=== PATIENT | female | born 1980 | race Two or more races ===

== ENCOUNTER 2021-09-24 11:14 | Emergency (ER) | payer SELFPAY ==
[~2021-09-24] VITALS: Ht 160 cm; Wt 72.0 kg
--- NOTE | 2021-09-24 11:33 | ED.ADGEN ---
Past Medical History Past Surgical History: Appendectomy General Adult EDM: Chief Complaint: ABDOMINAL PAIN HPI: HPI: Patient is a 41 year old female coming in for 1 week of intermittent right upper quadrant pain. Patient states that pain is worse after eating. Has some nausea but no vomiting. Denies any hematuria. Has a pain reach out to the side but not to the back. Has history of appendectomy. Review of Systems: Review of Systems: All other systems within normal limits except for as noted in the HPI Current Medications: Current Medications Medications (Trade) Dose Ordered Sig/Yas Start Time Stop Time Status Last Admin Dose Admin Info (CONTRAST GIVEN -- Rx MONITORING) 1 each PRN DAILY PRN 09/24/21 12:45 09/26/21 12:44 Iohexol (Omnipaque 300 Mg/ml) 75 ml 1X ONCE 09/24/21 12:45 09/24/21 12:46 DC 09/24/21 13:03 75 ML Multi-Ingredient Mouthwash/Gargle (Gi Cocktail) 20 ml 1X ONCE 09/24/21 13:30 09/24/21 13:31 DC 09/24/21 13:56 20 ML Allergies: Allergies: Allergies Coded Allergies Type Severity Reaction Last Updated Verified No Known Drug Allergies 09/24/21 No Physical Exam: PE: Constitutional: Well developed, well nourished, no acute distress, non-toxic appearance. [] HENT: Normocephalic, atraumatic, bilateral external ears normal, nose normal. [] Eyes: PERRLA, conjunctiva normal, no discharge. [] Neck: No rigidity, supple, no stridor. [] Cardiovascular: Regular rate and rhythm, brisk cap refill [] Lungs & Thorax: Non labored symmetric respirations, no tachypnea or respiratory distress [] Abdomen: Soft, nondistended, positive Anna sign. Skin: Warm, dry, no erythema, no rash. [] Back: Unremarkable, no CVA tenderness Extremities: No deformities, range of motion grossly intact, no lower extremity edema [] Neurologic: Alert and oriented X 3, no focal deficits noted. [] Psychologic: Affect normal, judgement normal, mood normal. [] Current Patient Data: Labs: Laboratory Tests Test 09/24/21 11:35 09/24/21 11:39 09/24/21 11:45 Urine Collection Type Unknown Urine Color Yellow Urine Clarity Clear Urine pH 6.0 (<5.0-8.0) Urine Specific [place] 1.025 (1.000-1.030) Urine Protein Negative mg/dL (NEG-TRACE) Urine Glucose (UA) Negative mg/dL (NEG) Urine Ketones (Stick) Negative mg/dL (NEG) Urine Blood Negative (NEG) Urine Nitrite Negative (NEG) Urine Bilirubin Negative (NEG) Urine Urobilinogen Dipstick 1.0 mg/dL (0.2 mg/dL) Urine Leukocyte Esterase Small (NEG) Urine RBC 0 /HPF (0-2) Urine WBC 1-4 /HPF (0-4) Urine Squamous Epithelial Cells Few /LPF Urine Bacteria 0 /HPF (0-FEW) Urine Mucus Mod /LPF POC Urine HCG, Qualitative Hcg negative (Negative) White Blood Count 6.8 x10^3/uL (4.0-11.0) Red Blood Count 3.97 x10^6/uL (3.50-5.40) Hemoglobin 12.5 g/dL (12.0-15.5) Hematocrit 36.9 % (36.0-47.0) Mean Corpuscular Volume 93 fL (79-100) Mean Corpuscular Hemoglobin 32 pg (25-35) Mean Corpuscular Hemoglobin Concent 34 g/dL (31-37) Red Cell Distribution Width 13.6 % (11.5-14.5) Platelet Count 329 x10^3/uL (140-400) Neutrophils (%) (Auto) 77 % (31-73) H Lymphocytes (%) (Auto) 13 % (24-48) L Monocytes (%) (Auto) 7 % (0-9) Eosinophils (%) (Auto) 2 % (0-3) Basophils (%) (Auto) 0 % (0-3) Neutrophils # (Auto) 5.3 x10^3/uL (1.8-7.7) Lymphocytes # (Auto) 0.9 x10^3/uL (1.0-4.8) L Monocytes # (Auto) 0.5 x10^3/uL (0.0-1.1) Eosinophils # (Auto) 0.1 x10^3/uL (0.0-0.7) Basophils # (Auto) 0.0 x10^3/uL (0.0-0.2) Sodium Level 143 mmol/L (136-145) Potassium Level 3.9 mmol/L (3.5-5.1) Chloride Level 106 mmol/L (98-107) Carbon Dioxide Level 27 mmol/L (21-32) Anion Gap 10 (6-14) Blood Urea Nitrogen 9 mg/dL (7-20) Creatinine 0.6 mg/dL (0.6-1.0) Estimated GFR (Cockcroft-Gault) 110.2 BUN/Creatinine Ratio 15 (6-20) Glucose Level 83 mg/dL (70-99) Calcium Level 8.0 mg/dL (8.5-10.1) L Total Bilirubin 0.3 mg/dL (0.2-1.0) Aspartate Amino Transferase (AST) 6 U/L (15-37) L Alanine Aminotransferase (ALT) 15 U/L (14-59) Alkaline Phosphatase 84 U/L (46-116) C-Reactive Protein, Quantitative 213.7 mg/L (0-3.3) H Total Protein 7.6 g/dL (6.4-8.2) Albumin 2.8 g/dL (3.4-5.0) L Albumin/Globulin Ratio 0.6 (1.0-1.7) L Lipase 92 U/L (73-393) Laboratory Tests 09/24/21 11:45 Laboratory Tests 09/24/21 11:45 Microbiology 09/24/21 Wet Prep - Final, Complete Vital Signs: Vital Signs Date Time Temp Pulse Resp B/P (MAP) Pulse Ox O2 Delivery O2 Flow Rate FiO2 09/24/21 14:21 86 118/75 (89) 98 Room Air 09/24/21 11:18 98.3 18 98.3 EKG: EKG: [] Heart Score: C/O Chest Pain: No Risk Factors: Risk Factors: DM, Current or recent (<one month) smoker, HTN, HLP, family history of CAD, obesity. Risk Scores: Score 0 - 3: 2.5% MACE over next 6 weeks - Discharge Home Score 4 - 6: 20.3% MACE over next 6 weeks - Admit for Clinical Observation Score 7 - 10: 72.7% MACE over next 6 weeks - Early Invasive Strategies Radiology/Procedures: Radiology/Procedures: RUN DATE: 09/24/21 [facility] *LIVE* PAGE 1 RUN TIME: 1528 Specimen Inquiry PATIENT: TAMIKO RUGGIERO ACCT: [id number] LOC: [facility] U: [id number] AGE/SX: 41/F ROOM: RE09/24/[address]: JANE WLALACE MD : 1980 BED: DIS: STATUS: REG ER TLOC: SPEC #: [id number] MIGUEL: 09/24/21 STATUS: COMP REQ #: [id number] RECD: 09/24/[address]: JANE WALLACE MD SOURCE: VAGINAL ENTR: 09/24/21-1418 [facility] DR: MARTINEZ ARREAGA SPDESC: ORDERED: WET PREP COMMENTS: Has specimen been collected/obtained? Y Procedure Result WET PREP Final YEAST NONE SEEN TRICHOMONAS NONE SEEN CLUE CELLS CLUE CELLS PRESENT ALTERED JARVIS ALTERED JARVIS PRESENT SUGGESTIVE OF BACTERIAL VAGINOSIS WBCS NONE PRESENT RBCS NO RBCS SEEN SQUAMOUS EPS [facility] [address] [place] [address] IMAGING REPORT Signed PATIENT: TAMIKO RUGGIEROACCOUNT: [id number] : 1980 LOCATION: ER AGE: 41 SEX: F EXAM STATUS: REG ER ORD. PHYSICIAN: JANE WALLACE MD REASON: PID, ovarian cysts PROCEDURE: PELVIS COMPLETE INDICATION: Reason: PID, ovarian cysts / Spl. Instructions: / History: COMPARISON: CT from same day TECHNIQUE: Grayscale and color ultrasound images uterus and adnexa. FINDINGS: Uterus: 90 x 53 x 51 mm. 10 mm endometrial stripe Right Ovary: 44 x 36 x 30 mm. Left Ovary: 65 x 53 x 47 mm. Vascular flow identified to bilateral ovaries. Heterogenous hypoechoic lesion right ovary measuring 28 mm and left ovary measuring 43 mm. IMPRESSION: * Heterogenous hypoechoic lesions in the bilateral ovaries. Could be from causes such as hemorrhagic cyst or endometrioma but follow-up could be obtained to ensure that this does not increase to exclude higher grade neoplastic cause. Given the patient's stranding within the pelvis on CT alternative infectious causes such as pelvic inflammatory changes with tubo-ovarian abscess is also a differential. Electronically signed by: Kellie Martin MD (09/24/2021 3:34 PM) [id number] DICTATED and SIGNED BY: KELLIE MARTIN MD DATE: 09/24/21 [id number] [facility] [address] [place] [address] IMAGING REPORT Signed PATIENT: TAMIKO RUGGIEROACCOUNT: [id number] : 1980 LOCATION: ER AGE: 41 SEX: F EXAM STATUS: REG ER ORD. PHYSICIAN: JANE WALLACE MD REASON: upper abd pain PROCEDURE: CT ABD PELV W/ IV CONTRST ONLY EXAM: Abdomen and pelvis CT with intravenous contrast. HISTORY: Pain. TECHNIQUE: Computed tomographic images of the abdomen and pelvis were obtained following the administration of intravenous contrast. Multiplanar reformatting was performed. *One or more of the following individualized dose reduction techniques were utilized for this examination: 1. Automated exposure control. 2. Adjustment of the mA and/or kV according to patient size. 3. Use of iterative reconstruction technique. COMPARISON: None. FINDINGS: Evaluation of the lower thorax demonstrates bilateral lower lobe pneumonia. There is also right middle lobe and lingular atelectasis or infiltrate. There is no pleural effusion. The heart is normal in size. There is a 4 mm hypodense lesion within the right hepatic lobe, too small to characterize. The gallbladder is contracted. The stomach is distended due to recently ingested bolus. The pancreas, spleen and adrenal glands are unremarkable. The appendix is not seen. There are no secondary findings to suggest appendici tis. There is segmental wall thickening involving the colon likely due to relative under distention. There are also nonspecific loops of small bowel with wall thickening within the left abdomen. There is a tiny focus of gas within the bladder, likely related to recent catheterization. There aren't left greater than right ovarian cysts, measuring 4.5 cm and 2.7 cm. There is inflammatory stranding within the inferior peritoneal cavity and throughout the adnexal regions. The aorta is normal in caroline iber. There are nonspecific lymph nodes. IMPRESSION: 1. Left greater than right ovarian cyst measuring 4.5 cm and 2.7 cm. There is inflammatory stranding primarily within the inferior peritoneum and pelvis. Correlate for peritonitis or pelvic inflammatory disease. 2. Nonspecific wall thickening involving loops of small and large bowel, likely due to relative under distention and peristalsis. There is no bowel obstruction and there are no secondary findings to suggest appendicitis. 3. Contracted gallbladder and distended stomach due to the postprandial status the patient. 4. Bilateral mid and lower lung interstitial infiltrate likely superimposed on atelectasis. 5. Tiny hypodense lesion within the liver. In the absence of known malignancy, this likely a cyst or hemangioma. Electronically signed by: Radha Amin MD (09/24/2021 1:12 PM) [id number] DICTATED and SIGNED BY: RADHA AMIN MD DATE: 09/24/21 [id number] [] Course & Med Decision Making: Course & Med Decision Making Pertinent Labs and Imaging studies reviewed. (See chart for details) Patient presenting for right upper quadrant abdominal pain. Gallbladder unremarkable and contracted. No stones visible. 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 On ultrasound cysts are concerning for possible tubo-ovarian abscesses. However they are small. Patient has an elevated CRP with a normal white count. Discussed case with Dr. Smith and since patient is otherwise stable and in no acute distress will treat outpatient with follow-up in 1 week [] Jeana Disclaimer: Jeana Disclaimer: This electronic medical record was generated, in whole or in part, using a voice recognition dictation system. Departure Departure Impression: Primary Impression: PID (acute pelvic inflammatory disease) Disposition: HOME / SELF CARE / HOMELESS Condition: STABLE Referrals: KERRI SMITH MD Patient Instructions: Pelvic Inflammatory Disease Additional Instructions: Take antibiotics as prescribed. Call today for a follow-up appointment with Dr. Smith in 1 week Scripts Acetaminophen With Codeine (ACETAMINOPHEN-COD #3 TABLET) 1 Each Tablet 1 TAB PO PRN Q6HRS PRN for PAIN for 3 Days, #10 TAB Prov: JANE WALLACE MD 09/24/21 Metronidazole (METRONIDAZOLE) 500 Mg Tablet 1 TAB PO BID for antibiotic for 14 Days, #28 TAB 0 Refills Prov: JANE WALLACE MD 09/24/21 Doxycycline Hyclate (DOXYCYCLINE HYCLATE) 100 Mg Capsule 1 CAP PO BID for antibiotic for 14 Days, #28 CAP Prov: JANE WALLACE MD 09/24/21 JANE WALLACE MD Sep 24, 2021 11:33
[2021-09-24 11:50] LABS: BILIRUBIN,URINE NEGATIVE (NEG); CLARITY,URINE CLEAR; COLOR,URINE YELLOW; NITRITE,URINE NEGATIVE (NEG); PROTEIN,URINE NEGATIVE (NEG-TRACE)
[2021-09-24 11:58] LABS: BASO % 0 % (0-3); EOS # 0.1 x10^3/uL (0.0-0.7); EOS % 2 % (0-3); HEMATOCRIT 36.9 % (36.0-47.0); HEMOGLOBIN 12.5 g/dL (12.0-15.5); LYMPH # 0.9 x10^3/uL (1.0-4.8); LYMPH % 13 % (24-48); MEAN CORPUSCULAR HEMOGLOBIN 32 pg (25-35); MEAN CORPUSCULAR HGB CONC 34 g/dL (31-37); MEAN CORPUSCULAR VOLUME 93 fL (79-100); MONO # 0.5 x10^3/uL (0.0-1.1); MONO % 7 % (0-9); NEUT # 5.3 x10^3/uL (1.8-7.7); NEUT % 77 % (31-73); PLATELET COUNT 329 x10^3/uL (140-400); RED BLOOD COUNT 3.97 x10^6/uL (3.50-5.40); RED CELL DISTRIBUTION WIDTH 13.6 % (11.5-14.5); WHITE BLOOD COUNT 6.8 x10^3/uL (4.0-11.0)
[2021-09-24 11:59] LABS: BACTERIA,URINE 0 /HPF (0-FEW); RBC,URINE 0 /HPF (0-2)
[2021-09-24 12:07] LABS: CREATININE 0.6 mg/dL (0.6-1.0); GFR 110.2; POTASSIUM 3.9 mmol/L (3.5-5.1)
[2021-09-24 12:13] LABS: ALBUMIN 2.8 g/dL (3.4-5.0); ALBUMIN/GLOBULIN RATIO 0.6 (1.0-1.7); TOTAL BILIRUBIN 0.3 mg/dL (0.2-1.0); TOTAL PROTEIN 7.6 g/dL (6.4-8.2)
--- NOTE | 2021-09-24 12:18 | RAD ---
EXAM: Abdomen sonogram. HISTORY: Pain. TECHNIQUE: Sonographic imaging of the abdomen was performed. COMPARISON: None. FINDINGS: The liver is normal in size. No focal hepatic lesion is seen. The gallbladder is contracted . This limits evaluation. The common bile duct is normal in caliber. The right kidney, pancreas and i nferior vena cava are unremarkable. IMPRESSION: 1. Contracted gallbladder. This can be due to the postprandial status of the patient and limits evalu ation. 2. Otherwise, unremarkable abdomen sonogram. Electronically signed by: Precious Paredes MD (09/24/2021 12:15 PM) [id number]
[2021-09-24] MEDS ORDERED: IOHEXOL 300 MG/ML 100ML VIAL. IV ONE (12:45)
[2021-09-24] MEDS ORDERED: CONTRAST GIVEN. MC PRN (12:45)
--- NOTE | 2021-09-24 13:15 | RAD ---
EXAM: Abdomen and pelvis CT with intravenous contrast. HISTORY: Pain. TECHNIQUE: Computed tomographic images of the abdomen and pelvis were obtained following the administ ration of intravenous contrast. Multiplanar reformatting was performed. *One or more of the following individualized dose reduction techniques were utilized for this examina tion: 1. Automated exposure control. 2. Adjustment of the mA and/or kV according to patient size. 3. Use of iterative reconstruction technique. COMPARISON: None. FINDINGS: Evaluation of the lower thorax demonstrates bilateral lower lobe pneumonia. There is also r ight middle lobe and lingular atelectasis or infiltrate. There is no pleural effusion. The heart is n ormal in size. There is a 4 mm hypodense lesion within the right hepatic lobe, too small to characterize. The gallbl adder is contracted. The stomach is distended due to recently ingested bolus. The pancreas, spleen an d adrenal glands are unremarkable. The appendix is not seen. There are no secondary findings to suggest appendicitis. There is segmental wall thickening involving the colon likely due to relative under distention. There are also nonspeci fic loops of small bowel with wall thickening within the left abdomen. There is a tiny focus of gas within the bladder, likely related to recent catheterization. There aren 't left greater than right ovarian cysts, measuring 4.5 cm and 2.7 cm. There is inflammatory strandin g within the inferior peritoneal cavity and throughout the adnexal regions. The aorta is normal in ca liber. There are nonspecific lymph nodes. IMPRESSION: 1. Left greater than right ovarian cyst measuring 4.5 cm and 2.7 cm. There is inflammatory stranding primarily within the inferior peritoneum and pelvis. Correlate for peritonitis or pelvic inflammatory disease. 2. Nonspecific wall thickening involving loops of small and large bowel, likely due to relative under distention and peristalsis. There is no bowel obstruction and there are no secondary findings to sug gest appendicitis. 3. Contracted gallbladder and distended stomach due to the postprandial status the patient. 4. Bilateral mid and lower lung interstitial infiltrate likely superimposed on atelectasis. 5. Tiny hypodense lesion within the liver. In the absence of known malignancy, this likely a cyst or hemangioma. Electronically signed by: Precious Paredes MD (09/24/2021 1:12 PM) [id number]
[2021-09-24] MEDS ORDERED: LIDO:MAALOX 1:1 20 ML SINGLE DOSE. SWSW ONE (13:30)
--- NOTE | 2021-09-24 15:37 | RAD ---
INDICATION: Reason: PID, ovarian cysts / Spl. Instructions: / History: COMPARISON: CT from same day TECHNIQUE: Grayscale and color ultrasound images uterus and adnexa. FINDINGS: Uterus: 90 x 53 x 51 mm. 10 mm endometrial stripe Right Ovary: 44 x 36 x 30 mm. Left Ovary: 65 x 53 x 47 mm. Vascular flow identified to bilateral ovaries. Heterogenous hypoechoic lesion right ovary measuring 28 mm and left ovary measuring 43 mm. IMPRESSION: * Heterogenous hypoechoic lesions in the bilateral ovaries. Could be from causes such as hemorrhagi c cyst or endometrioma but follow-up could be obtained to ensure that this does not increase to exclu de higher grade neoplastic cause. Given the patient's stranding within the pelvis on CT alternative i nfectious causes such as pelvic inflammatory changes with tubo-ovarian abscess is also a differential . Electronically signed by: Jono Reina MD (09/24/2021 3:34 PM) [id number]
[2021-09-24] MEDS ORDERED: cefTRIAXone IM 500 MG VIAL. IM ONE (16:15)
[2021-09-24] MEDS ORDERED: DOXYCYCLINE HYCLATE 100 MG TABLET PO ONE (16:15)
[2021-09-24] MEDS ORDERED: metroNIDAZOLE 500 MG TABLET PO ONE (16:15)
[2021-09-24] MEDS ORDERED: METR-34 PO (16:17)
[2021-09-24] MEDS ORDERED: ACET1TAB33 PO (16:17)
[2021-09-24] MEDS ORDERED: DOXY100C3 PO (16:17)
[2021-09-24 16:46] VITALS: BP 126/80
[2021-09-27 20:08] LABS: GC PROBE Negative (Negative)
== END 2021-09-24 16:59 | disposition home or self-care (01) ==
LOC: ER 11:14
DX: R10.11 Right upper quadrant pain (principal); R11.0 Nausea; Z90.89 Acquired absence of other organs
CPT/HCPCS: 36415; 74177; 76705; 76856; 80053; 81001; 81025; 83690; 85025; 86140; 87086; 87491; 87591; 96372; 99285; J0696; Q0111; Q9967